=== PATIENT | female | born 1990 | race African-American/Black ===

== ENCOUNTER 2021-03-12 01:51 | Observation (INO) ==
[2021-03-12 03:04] LABS: Basophils % 0.4 % (0.0-0.8); Eosinophils # 0.5 10*3/uL (0.0-0.87); Eosinophils % 4.8 % (0.00-10.9); Hematocrit 39.7 VOL% (35.7-47.0); Hemoglobin 13.1 GM/DL (12.0-16.0); Immature Granulocytes % 0.3 %; Immature Granulocytes Absolute 0.03 #; Lymphocytes # 2.2 10*3/uL (1.4-4.0); Lymphocytes % 22.9 % (21.3-54.2); Mean Corpuscular Volume 89.6 FL (87-102); Mean Platelet Volume 9.4 FL (9.6-12.0); Monocytes % 6.6 % (1.7-12.7); Platelet Count 276 T/CUMM (130-400); Red Blood Count 4.43 MC/CUMM (3.8-5.5); Red Cell Distribution Width 13.6 % (9.3-17.3); White Blood Count 9.5 T/CUMM (4-12)
[2021-03-12 03:25] LABS: Alanine Aminotransferase 19 U/L (13-56); Albumin 3.6 G/DL (3.4-5.0); Alkaline Phosphatase 56 U/L (45-117); Aspartate Amino Transferase 14 U/L (0-37); Bilirubin,Total < 0.39 MG/DL (0.20-1.00); Blood Urea Nitrogen 15 MG/DL (7-18); Carbon Dioxide 25 MMOL/L (21-32); Estimated Glom Filtration Rate 176 ML/MIN; Glucose 130 MG/DL (74-106); Osmolality,Calculated 279.5 MOS/KG (273-304); Potassium 3.5 MMOL/L (3.5-5.1); Sodium 139 MMOL/L (136-145); Total Protein 8.2 G/DL (6.4-8.2)
[2021-03-12] MEDS ORDERED: PANTOPRAZOLE 40 MG VIAL IV STA (08:15)
[2021-03-12] MEDS ORDERED: ONDANSETRON 4 MG/2 ML VIAL IV STA (08:15)
[2021-03-12] MEDS ORDERED: SODIUM CHLORIDE 0.9% 1,000 ML IV STA (08:15)
[2021-03-12] MEDS ORDERED: PIPERACILLIN/TAZOBACTAM 3,375 MG in SODIUM CHLORIDE 0.9% 100 ML IV STA (09:37)
[2021-03-12] MEDS ORDERED: HYDROmorphone 2 MG/1 ML VIAL IM STA (09:38)
[2021-03-12 09:54] LABS: Bilirubin,Urine Negative (Negative); Blood, Urine Moderate mg/dL (Negative); Glucose,Urine (UA) Negative (Negative); Ketones,Urine 20 mg/dL (Negative); Mucus,Urine Occasional /LPF (Occasional); Nitrite,Urine Negative (Negative); Protein,Urine 30 MG/DL; RBC,Urine 6 /HPF (0-4); Squamous Epithelial Cell,Urine Occasional /HPF (0-10); Urine Appearance CLEAR (Clear); Urine Color Yellow (Yellow); Urine Specific Gravity 1.023 (1.001-1.035); Urine Urobilinogen < 2.0 EU/DL (<2.0)
[2021-03-12] MEDS ORDERED: INDOCYANINE GREEN 25 MG VIAL IV ONE (11:02)
[2021-03-12] MEDS ORDERED: KETOROLAC 15 MG/1 ML VIAL IV PRN (11:05)
[2021-03-12] MEDS ORDERED: ONDANSETRON 4 MG/2 ML VIAL IV PRN (11:05)
[2021-03-12] MEDS ORDERED: BISACODYL 5 MG TABLET PO PRN (11:05)
[2021-03-12] MEDS ORDERED: ALBUTEROL/IPRATROPIUM 3 ML NEB RESP TX PRN (11:05)
[2021-03-12] MEDS ORDERED: ACETAMINOPHEN 325 MG TABLET PO PRN (11:05)
[2021-03-12] MEDS ORDERED: HYDROmorphone 2 MG/1 ML VIAL IV PRN ×2 (11:05)
[2021-03-12] MEDS ORDERED: KETOROLAC 30 MG/1 ML VIAL IV PRN (11:30)
[2021-03-12] MEDS: LACTATED RINGERS 1,000 ML IV SCH ×2 (13:20→23:35)
[2021-03-12 18:52] LABS: Basophils % 0.2 % (0.0-0.8); Eosinophils # 0.1 10*3/uL (0.0-0.87); Eosinophils % 0.9 % (0.00-10.9); Hematocrit 36.5 VOL% (35.7-47.0); Hemoglobin 12.1 GM/DL (12.0-16.0); Immature Granulocytes % 0.3 %; Immature Granulocytes Absolute 0.03 #; Lymphocytes % 19.5 % (21.3-54.2); Mean Corpuscular HGB Conc 33.2 GM/DL (32-36); Mean Platelet Volume 9.2 FL (9.6-12.0); Monocytes % 6.7 % (1.7-12.7); Neutrophils % 72.4 % (38.7-73.9); Platelet Count 247 T/CUMM (130-400); Red Cell Distribution Width 13.3 % (9.3-17.3); White Blood Count 10.3 T/CUMM (4-12)
[2021-03-13 06:06] LABS: Basophils % 0.4 % (0.0-0.8); Eosinophils # 0.2 10*3/uL (0.0-0.87); Eosinophils % 2.5 % (0.00-10.9); Hematocrit 36.3 VOL% (35.7-47.0); Hemoglobin 12.1 GM/DL (12.0-16.0); Immature Granulocytes % 0.2 %; Immature Granulocytes Absolute 0.02 #; Lymphocytes # 2.2 10*3/uL (1.4-4.0); Lymphocytes % 25.9 % (21.3-54.2); Mean Corpuscular HGB Conc 33.3 GM/DL (32-36); Mean Platelet Volume 9.6 FL (9.6-12.0); Monocytes % 8.6 % (1.7-12.7); Neutrophils % 62.4 % (38.7-73.9); Platelet Count 262 T/CUMM (130-400); Red Blood Count 4.08 MC/CUMM (3.8-5.5); Red Cell Distribution Width 13.5 % (9.3-17.3); White Blood Count 8.4 T/CUMM (4-12)
[2021-03-13 06:33] LABS: Platelet Estimate Normal
[2021-03-13 06:36] LABS: Alanine Aminotransferase 15 U/L (13-56); Albumin 2.8 G/DL (3.4-5.0); Alkaline Phosphatase 44 U/L (45-117); Aspartate Amino Transferase 10 U/L (0-37); Bilirubin,Total < 0.39 MG/DL (0.20-1.00); Blood Urea Nitrogen 11 MG/DL (7-18); Calcium 8.2 MG/DL (8.5-10.1); Carbon Dioxide 28 MMOL/L (21-32); Estimated Glom Filtration Rate 149 ML/MIN; Glucose 103 MG/DL (74-106); Osmolality,Calculated 273.7 MOS/KG (273-304); Potassium 3.7 MMOL/L (3.5-5.1); Sodium 138 MMOL/L (136-145); Total Protein 6.8 G/DL (6.4-8.2)
[2021-03-13] MEDS ORDERED: INDOCYANINE GREEN 25 MG VIAL IV ONE (07:45)
[2021-03-13] MEDS: LACTATED RINGERS 1,000 ML IV SCH ×4 (08:15→22:34)
[2021-03-13] MEDS ORDERED: BUDESONIDE/FORMOTEROL 80-4.5 INHALER 6.9 GM INH SCH (09:00)
[2021-03-13] MEDS ORDERED: TISSUE ADHESIVE 1 EACH APPLICATOR TOP ONE (10:41)
[2021-03-13] MEDS ORDERED: BUPIVACAINE MPF 0.25% 30 ML VIAL ONE (10:41)
[2021-03-13] MEDS ORDERED: LIDOCAINE 1%/EPI INJ 20 ML VIAL ONE (10:42)
[2021-03-13] MEDS ORDERED: ALBUTEROL 2.5 MG/3 ML NEB RESP TX ONE (11:45)
[2021-03-13] MEDS ORDERED: SUCCINYLCHOLINE 200 MG/10 ML VIAL ONE (12:04)
[2021-03-13] MEDS ORDERED: propofoL 200 MG/20 ML VIAL IV ONE (12:04)
[2021-03-13] MEDS ORDERED: ONDANSETRON 4 MG/2 ML VIAL ONE (12:04)
[2021-03-13] MEDS ORDERED: SEVOFLURANE 1 UNIT/15 MINUTE INH ONE ×4 (12:04→14:04)
[2021-03-13] MEDS ORDERED: MIDAZOLAM 2 MG/2 ML VIAL ONE (12:04)
[2021-03-13] MEDS ORDERED: DEXAMETHASONE 4 MG/1 ML VIAL ONE (12:04)
[2021-03-13] MEDS ORDERED: ROCURONIUM 50 MG/5 ML VIAL IV ONE (12:04)
[2021-03-13] MEDS ORDERED: LIDOCAINE 2% 5 ML VIAL ONE (12:04)
[2021-03-13] MEDS ORDERED: fentaNYL 100 MCG/2 ML VIAL ONE ×2 (12:05→13:36)
[2021-03-13] MEDS ORDERED: LACTATED RINGERS 1,000 ML IV ONE (13:36)
[2021-03-13] MEDS ORDERED: GLYCOPYRROLATE 0.4 MG/2 ML VIAL ONE (14:00)
[2021-03-13] MEDS ORDERED: NEOSTIGMINE 10 MG/10 ML VIAL ONE (14:00)
[2021-03-13] MEDS ORDERED: ONDANSETRON 4 MG/2 ML VIAL IV PRN (14:47)
[2021-03-13] MEDS: HYDROmorphone 2 MG/1 ML VIAL IV PRN ×2 (14:50→14:55)
[2021-03-13] MEDS: NORGESTIMATE ETHINYL ESTRADIOL PO SCH (15:06)
[2021-03-13] MEDS: PANTOPRAZOLE 40 MG TABLET PO SCH (16:25)
[2021-03-13] MEDS: BUDESONIDE/FORMOTEROL 160-4.5 INHALER 6 GM INH SCH (20:37)
[2021-03-14] MEDS: PANTOPRAZOLE 40 MG TABLET PO SCH (08:20)
[2021-03-14] MEDS: NORGESTIMATE ETHINYL ESTRADIOL PO SCH (08:21)
[2021-03-14] MEDS: BUDESONIDE/FORMOTEROL 160-4.5 INHALER 6 GM INH SCH (08:21)
[2021-03-14 12:03] VITALS: BP 101/50
== END 2021-03-14 13:27 | disposition home or self-care (01) ==
LOC: N.ED 01:51 → N.EDINP 01:51 → N.3E 16:44
PROVIDERS: ADMIT Surgery; ATTEND Surgery